=== PATIENT | male | born 1990 | race Two or more races ===

== ENCOUNTER → 2018-06-15 | Outpatient (CLI) | payer BC ==
[2018-06-15 14:25] LABS: Basophils # (auto) 0.1 uL; Basophils % (auto) 1.1 % (0.0-2.0); Eosinophils # (auto) 0.2 uL; Eosinophils % (auto) 3.9 % (0.0-7.0); Hematocrit 50.8 % (41.0-53.0); Hemoglobin 17.3 g/dL (13.5-17.5); Lymphocytes # (auto) 1.4 uL; Lymphocytes % (auto) 23.7 % (10.0-50.0); Monocytes # (auto) 0.5 uL; Monocytes % (auto) 7.9 % (0.0-12.0); Neutrophils # (auto) 3.7 uL; Neutrophils % (auto) 63.4 % (37.0-80.0); Platelet Count (auto) 253 10^3/uL (140-450); Red Blood Cells 5.77 10^6/uL (4.5-5.90); Red Cell Distribution Width 13.1 % (11.8-14.3); White Blood Cell 5.9 10^3/uL (4.4-10.8)
[2018-06-15 16:08] LABS: Albumin 4.7 g/dL (3.4-5.0); BUN/Creatinine Ratio 12.3; Bilirubin, Total 0.6 mg/dL (0.2-1.0); Calcium 9.5 mg/dL (8.5-10.1); Total Protein 8.4 g/dL (6.4-8.2)
[2018-06-15 16:33] LABS: Urine Bacteria NONE SEEN /hpf (None Seen); Urine Blood Negative /uL (Negative); Urine Mucus FEW (None Seen); Urine WBC <1 /hpf (0 - 3)
== END | disposition home or self-care (01) ==
LOC: LAB 14:01
PROVIDERS: ATTEND Nurse Practitioner
DX: E78.5 Hyperlipidemia, unspecified (principal)
CPT/HCPCS: 36415; 80053; 80061; 81001; 82306; 83036; 84443; 85025

== ENCOUNTER → 2018-09-04 | Outpatient (CLI) | payer BC ==
[2018-09-05 04:10] LABS: RPR Non Reactive (Non Reactive)
== END | disposition home or self-care (01) ==
LOC: LAB 13:15
PROVIDERS: ATTEND Nurse Practitioner
DX: Z11.3 Encounter for screening for infections with a predominantly sexual mode of transmission (principal)
CPT/HCPCS: 36415; 86592; 86703; 86704; 86706; 86708; 86803; 87340

== ENCOUNTER 2019-11-17 22:30 | Emergency (ER) | payer BC, MEDICAID, OTHER ==
[~2019-11-17] VITALS: Ht 172.7 cm; Wt 81.6 kg
[2019-11-18 01:22] VITALS: BP 115/72
== END 2019-11-18 02:10 | disposition home or self-care (01) ==
LOC: ER 22:31
DX: S91.201A Unspecified open wound of right great toe with damage to nail, initial encounter (principal); W22.8XXA Striking against or struck by other objects, initial encounter; Y93.39 Activity, other involving climbing, rappelling and jumping off; Y92.89 Other specified places as the place of occurrence of the external cause; Y99.8 Other external cause status
CPT/HCPCS: 11730; 73630

== ENCOUNTER → 2021-08-21 | Emergency (ER) | payer OTHER ==
[~2021-08-21] VITALS: Ht 172.7 cm; Wt 83.9 kg
[~2021-08-21] MED LIST: ACET650T12 PO; BAC09TP TOP; BACITRACIN TOP OINT 1 UD PKG TOP ONE; IBUP600T28 PO; IBUPROFEN 600 MG TAB PO ONE
[2021-08-21 23:42] VITALS: BP 119/79
== END | disposition home or self-care (01) ==
LOC: ER 23:08
DX: S99.912A Unspecified injury of left ankle, initial encounter (principal); S50.312A Abrasion of left elbow, initial encounter; V28.4XXA Motorcycle driver injured in noncollision transport accident in traffic accident, initial encounter; Y93.89 Activity, other specified; Y92.89 Other specified places as the place of occurrence of the external cause; Y99.8 Other external cause status
CPT/HCPCS: 29515; 73610